=== PATIENT | female | born 1955 | race Caucasian/White ===

== ENCOUNTER → 2017-12-18 | Outpatient (CLI) | payer OTHER | LOC: M.RAD 11:17 | DX: Z12.31 Encounter for screening mammogram for malignant neoplasm of breast (principal); M79.672 Pain in left foot ==

== ENCOUNTER → 2019-08-27 | Outpatient (CLI) | payer OTHER | LOC: M.RAD 14:57 | DX: Z12.31 Encounter for screening mammogram for malignant neoplasm of breast (principal) ==

== ENCOUNTER → 2019-09-04 | Outpatient (CLI) | payer OTHER | LOC: M.ULTRA 08-28 15:42 → M.RAD 10:00 → M.ULTRA 10:30 → M.RAD 10:40 | DX: N64.89 Other specified disorders of breast (principal) ==

== ENCOUNTER → 2020-04-05 | Outpatient (CLI) | payer OTHER | LOC: M.RAD 15:28 | PROVIDERS: ATTEND Family Medicine | DX: N63.21 Unspecified lump in the left breast, upper outer quadrant (principal); R92.8 Other abnormal and inconclusive findings on diagnostic imaging of breast ==

== ENCOUNTER → 2020-04-08 | Outpatient (CLI) | payer OTHER ==
--- NOTE | 2020-04-09 19:07 | PATH ---
[address] [address] PATHOLOGY RPT PROCEDURE Name: CONSTANTINO PEÑA Room: [facility] Waters#: [id number] Admission: 04/08/20 Date of : 57 Discharge: Report #: [id number] Path Case #: [id number] LCA Accession Number: [id number] . 01 Material submitted: . breast - LEFT BREAST 1.55X1.15X0.98CM, 12:30, 3CMFN. Modifiers: left . 01 Clinical history: . MAMMATOME, CANCER . 02 Diagnosis: "Left breast 12:30 3 cm from nipple", needle biopsy: - INVASIVE DUCTAL CARCINOMA, MODERATELY DIFFERENTIATED, GRADE II, INVOLVING MULTIPLE CORES, LONGEST CONTIGUOUS FOCUS MEASURING 0.9 CM ON THE SLIDE (SEE COMMENT). (AGUSTO:mak; 04/09/2020) S 04/09/2020 1522 Local . 02 Comment: Specimen type: Needle biopsy; Tumor site: Left breast 12:30 3 cm FN; Tumor quantitation: Involving multiple cores, longest contiguous focus measuring 0.9 cm on the slide; Histologic type: Invasive ductal carcinoma; Histologic grade: Grade II, moderately differentiated; Tubules, nuclei and mitoses: Tubules score-3, nuclei score-2, mitoses score-2; LVSI: Not identified; Microcalcifications: Not identified; Markers: ER, KS, HER2, and Ki-67; Block: Pending on block A1. . Sybase Developer slides are co-reviewed with Dr. Nathaly San. Clinical and radiographic correlation is required. The case is will be discussed with Dr. Clare Zhu and/or her office and/or the [facility] breast center on 04/13/20. (CLW:mak; 04/09/2020) . 02 Electronically signed: . Ofe Jeronimo MD, Pathologist NPI- [id number] . 01 Gross description: . The specimen is received in formalin, labeled "Constantino Peña, left breast 1230 3 cm from nipple". Received are multiple needle cores of fibrofatty tissue measuring 1.8 x 1.4 x 0.4 cm in aggregate dimensions. The specimen is submitted entirely in cassettes A1 through A3. The cold ischemic time is 3 minutes. The total formalin fixation time is 12 hours and [address] [place] [address] PATHOLOGY RPT PROCEDURE Name: CONSTANTINO PEÑA Room: [facility] Waters#: [id number] Admission: 04/08/20 Date of : 57 Discharge: Report #: [id number] Path Case #: [id number] minutes. (CAA; 04/08/2020) QAC/QAC 04/08/2020 1705 Local . 02 Pathologist provided ICD-10: C50.912 . 02 CPT . 211807 Specimen Comment: A courtesy copy of this report has been sent to [phone] Specimen Comment: [phone] Specimen Comment: Report sent to / Performed at: [address] [facility] [address], [place], [place] [id number] MD Kannan Larry MD Phone: [phone] Performed at: 02 [facility] [address], [place], [place] [id number] MD Mateo Humphries MD Phone: [phone]
== END ==
LOC: M.ULTRA 08:07
PROVIDERS: ATTEND Family Medicine
DX: N63.20 Unspecified lump in the left breast, unspecified quadrant (principal)

== ENCOUNTER → 2020-04-15 | Outpatient (CLI) | payer OTHER | LOC: M.MRI 08:38 | PROVIDERS: ATTEND Family Medicine | DX: S83.241A Other tear of medial meniscus, current injury, right knee, initial encounter (principal); M25.461 Effusion, right knee; X58.XXXA Exposure to other specified factors, initial encounter; Y93.89 Activity, other specified; Y92.89 Other specified places as the place of occurrence of the external cause; Y99.8 Other external cause status ==

== ENCOUNTER → 2020-04-26 | Outpatient (CLI) | payer OTHER ==
[~2020-04-26] MED LIST: BUPROPION XL300 MG PO; OXYCODONE HCL 55 MG PO; SERTRALINE HCL50 MG PO
[2020-04-26 08:40] LABS: CREATININE 1.1 mg/dL (0.6-1.3)
== END ==
LOC: M.LAB 07:30 → M.MRI 08:30
PROVIDERS: ATTEND Surgery
DX: C50.912 Malignant neoplasm of unspecified site of left female breast (principal); N63.21 Unspecified lump in the left breast, upper outer quadrant; R59.0 Localized enlarged lymph nodes

== ENCOUNTER → 2020-05-24 | Outpatient (CLI) | payer OTHER ==
[~2020-05-24] MED LIST changes: -OXYCODONE HCL 55 MG PO
== END ==
LOC: M.ULTRA 08:30
PROVIDERS: ATTEND Surgery
DX: Z01.812 Encounter for preprocedural laboratory examination (principal); Z20.828 Contact with and (suspected) exposure to other viral communicable diseases; N63.21 Unspecified lump in the left breast, upper outer quadrant

== ENCOUNTER → 2020-05-27 | Day surgery (SDC) | payer OTHER ==
[~2020-05-27] MED LIST changes: +OXYCODONE HCL 55 MG PO
[2020-05-27 11:33] LABS: HEMATOCRIT 35.6 % (37.0-47.0); HEMOGLOBIN 11.9 gm/dL (12.0-15.0); MCH 29.3 pg (26.0-34.0); MCHC 33.3 g/dL (28.0-37.0); MCV 87.9 fL (80.0-100.0); MPV 7.5 fl. (7.2-11.1); RBC 4.04 mil/uL (4.20-5.00); RDW-CV 13.7 % (10.5-14.5); WBC 5.4 thou/uL (4.0-11.0)
[2020-05-27 11:37] LABS: CALCIUM 8.7 mg/dL (8.5-10.1); POTASSIUM 4.7 mmol/L (3.5-5.1)
--- NOTE | 2020-05-27 17:12 | EKG ---
[place] [address] ELECTROCARDIOGRAM REPORT Name: CONSTANTINO COHN Room: [facility]#: [id number] Admission: 05/27/20 Attend Phys: Chantel Enciso, Discharge: Date of : 57 Date of Service: 05/27/20 1119 Report #: [id number] THIS REPORT FOR: //name// [facility] Test Date: 2020-05-27 Test Time: 11:19:21 Pat Name: CONSTANTINO COHN Department: Room: Gender: [employer] Assistant Principal: : 1955 Requested By: Chantel Enciso Order Number: [id number] Reading MD: Milton Larry Measurements Intervals Boyd Rate: 62 P: 32 SD: 165 QRS: 125 QRSD: 119 T: 74 QT: 398 QTc: 405 Interpretive Statements Sinus rhythm Nonspecific intraventricular conduction delay No previous ECG available for comparison Electronically Signed On 05-27-2020 17:12:38 CDT by Milton Larry [email or web address] <ELECTRONICALLY SIGNED> By: Sharifa Larry MD, [facility] 05/27/20 171 1119 1119 Sharifa Larry MD, FACC /EPI
--- NOTE | 2020-05-28 05:45 | OP ---
[address] [address] OPERATIVE REPORT Name: CONSTANTINO COHN Room: [facility]#: [id number] Admission: 05/27/20 Attend Phys: Chantel Enciso DO Discharge: Date of : 57 Report #: [id number] THIS REPORT FOR: //name// cc: Clare Zhu Linda J. DO ~ CC: Chantel Zhu DATE OF SERVICE: 05/27/2020 PREOPERATIVE DIAGNOSIS: Left breast cancer. POSTOPERATIVE DIAGNOSIS: Left breast cancer. FINDINGS: RFID tag in the left breast. Previous upper outer left breast incision, superficial left sentinel lymph node. Uptake at the nipple with Neoprobe was approximately 8300, uptake on the left superficial sentinel lymph node was 51. SURGEON: Chantel Enciso DO COSURGEON: Magdiel Lee, PGY-1. BURNISHER: MS [email or web address]. OPERATION PERFORMED: Left breast RFID tag-guided lumpectomy, left superficial sentinel lymph node dissection. ANESTHESIA: LMA and local. ESTIMATED BLOOD LOSS: 30 mL. DRAINS: None. SPECIMENS: Left breast lumpectomy and left superficial sentinel lymph node. COMPLICATIONS: None. CONDITION: Stable. DISPOSITION: PACU to home. HISTORY OF PRESENT ILLNESS: The patient is a very pleasant 64-year-old female who presented to my office with a change in her mammogram. She underwent an ultrasound-guided biopsy, which was positive for left breast invasive ductal carcinoma. 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 [address] OPERATIVE REPORT Name: CONSTANTINO COHN Alejandra Room: [facility]#: [id number] Admission: 05/27/20 Attend Phys: Chantel Enciso DO Discharge: Date of : 57 Report #: [id number] already undergone lumpectomy and radiation. She was seen in consultation with Oncology and Radiation Oncology and it was decided that we could move forward with repeat lumpectomy, sentinel lymph node dissection and radiation. Risks and benefits of surgery were discussed clearly with the patient and she agreed to proceed. Of note, we were not sure whether or not we would be able to complete a sentinel lymph node dissection as her previous lumpectomy is in the left upper outer quadrant of the breast. We discussed that we would attempt it today, but everyone was aware that it may not be successful. DESCRIPTION OF PROCEDURE: The patient presented to preop and was then taken to Radiology where she underwent a left breast, nuclear medicine injection. She then returned to preop where she underwent informed consent. She had received an RFID tag placement several days prior to surgery. She was then taken to the operating room where she was laid supine on the operating room table. SCDs were placed on bilateral lower extremities. Ancef was given in the perioperative period. General LMA anesthesia was induced by Anesthesia without difficulty. A 7 mL of Lymphazurin were then injected in the periareolar area without issue. Left breast was then prepped and draped in standard sterile fashion. We proceeded first with our sentinel lymph node dissection. Neoprobe was brought onto the field and the area of the nipple was investigated. Highest uptake in the area of the nipple was approximately 8300. Neoprobe was moved into the axilla and the area of the highest uptake was marked. A 10 mL of 0.5% Marcaine were injected just below the hair-bearing area. Incision was made with #15 blade. Cautery was used for hemostasis. A Weitlaner retractor was placed within the wound. Then, using very careful blunt and cautery dissection, we dissected down through the subcutaneous tissues until the clavipectoral fascia was identified. Clavipectoral fascia was transected utilizing cautery and the axillary fat pad was then easily identified. Neoprobe was returned into the axilla and an area of uptake was identified. This area was dissected down gently too with a Jenna dissection. At this point, a blue lymphatic was identified tracing to a lymph node. This area was gently elevated using an Allis clamp and the entirety of the lymph node was excised using cautery. Our Neoprobe uptake was not as high as usual, but again I suspect this was secondary to the patient's history of a lumpectomy and radiation in the same area. The highest amount of uptake was 51. This was handed off as our left superficial sentinel lymph node. Neoprobe was returned into the axilla and there was no further uptake at all noted. Neoprobe was then handed off. Hemostasis was assured within this cavity. We then turned our attention to the left breast. Hologic RFID probe was then brought onto the field and the area of the clip was identified and was marked. This was essentially in the exact same area as her previous lumpectomy. The previous lumpectomy incision was then marked out. A 10 mL of 0.5% Marcaine were injected. The previous lumpectomy incision was reopened using a #15 blade. Cautery was used for hemostasis. Then, using the RFID tag for guidance, a lumpectomy specimen was formed utilizing cautery. The probe was utilized at the conclusion of the lumpectomy to verify that the tag was in the middle of the lumpectomy specimen, it did [place] [address] OPERATIVE REPORT Name: CONSTANTINO COHN Alejandra Room: [facility]#: [id number] Admission: 05/27/20 Attend Phys: Chantel Enciso DO Discharge: Date of : 57 Report #: [id number] margins. Specimen was marked in the superior and lateral directions. It was then taken to Radiology. Radiologist did call to update us that it did appear that we had an adequate specimen. Both cavities were copiously irrigated and hemostasis was assured. FloSeal was introduced into both cavities. Both cavities were then closed in a layered fashion using deep and superficial stitches of 3-0 Vicryl in inverted interrupted fashion. Skin wounds were closed with running 4-0 Monocryl. A total of 30 mL of 0.5% Marcaine were used to anesthetize the wounds. Wounds were then cleansed and covered with Dermabond. The patient was then allowed to awake from anesthesia, was extubated and transported to the recovery room with no further difficulties. Counts were correct x 2 at the conclusion of the case. <ELECTRONICALLY SIGNED> By: Chantel Enciso DO 05/28/20 0545 1413 1626Ckimberly Enciso DO /nt
--- NOTE | 2020-06-01 17:06 | PATH ---
[address] [address] PATHOLOGY RPT PROCEDURE Name: SUKICONSTANTINO Alejandra Room: [facility]#: [id number] Admission: 05/27/20 Date of : 57 Discharge: Report #: [id number] Path Case #: [id number] LCA Accession Number: [id number] . 01 Material submitted: . PART A: lymph node - LEFT SENTINEL LYMPH NODE. Modifiers: left PART B: breast - LEFT BREAST LUMPECTOMY SPECIMEN TO MAMMOGRAPHY. Modifiers: left . 01 Clinical history: . Short-sup.; long-lateral on the stitches . 02 Diagnosis: A. Left sentinel lymph node: - One benign lymph node (0/1). See comment. . B. Left breast lumpectomy: - INFILTRATING DUCTAL ADENOCARCINOMA, HIGH-GRADE, SPANNING 19 MM, IN ASSOCIATION WITH CHANGES OF PRIOR BIOPSY (INCLUDING CYLINDRICAL MARKER), WITH ALL SURGICAL MARGINS FREE OF INVOLVEMENT AND CLOSEST (POSTERIOR NEAR INFERIOR) 0.8 MM AWAY. - DUCTAL CARCINOMA IN SITU (DCIS), NUCLEAR GRADE I, CRIBRIFORM AND SOLID TYPES, SPANNING AT LEAST 19 MM, IN ASSOCIATION WITH CHANGES OF PRIOR BIOPSY, WITH ALL SURGICAL MARGINS FREE OF INVOLVEMENT AND CLOSEST (POSTERIOR) LOCATED 4 MM AWAY. SEE COMMENT. . 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 . Surgical Pathology Cancer Case Summary INVASIVE CARCINOMA OF THE BREAST: Resection . Procedure ___ Excision (less than total mastectomy) . Specimen Laterality ___ Left . + Tumor Site + ___ Clock position: 12:30, 3 cm from nipple (see comment) . Tumor Size ___ Greatest dimension of largest invasive focus >1 mm: 19 mm . Histologic Type ___ Invasive carcinoma of no special type (ductal) . Histologic Grade (Aurelio Histologic Score) Glandular (Acinar)/[place] [address] PATHOLOGY RPT PROCEDURE Name: CONSTANTINO PEÑA Alejandra Room: [facility].#: [id number] Admission: 05/27/20 Date of : 57 Discharge: Report #: [id number] Path Case #: [id number] ___ Score 3 (<10% of tumor area forming glandular/tubular structures) . Nuclear Pleomorphism ___ Score 2 (cells larger than normal with open vesicular nuclei, visible nucleoli, and moderate variability in both size and shape) . Mitotic Rate ___ Score 3 . Overall Grade ___ Grade 3 (scores of 8 or 9) . + Tumor Focality + ___ Single focus of invasive carcinoma . Ductal Carcinoma In Situ (DCIS) ___ Present + ___ Negative for extensive intraductal component (EIC) . + Size (Extent) of DCIS + Estimated size of DCIS is at least 19 mm . + Architectural Patterns + ___ Cribriform + ___ Solid . + Nuclear Grade + ___ Grade I (low) . + Necrosis + ___ Not identified . + Lobular Carcinoma In Situ (LCIS) + ___ Not identified . Tumor Extension Skin ___ Skin is not present . Skeletal Muscle ___ No skeletal muscle is present . Margins Invasive Carcinoma Margins ___ Uninvolved by invasive carcinoma Distance from closest margin: ___ Specify 0.8 mm + Specify closest margin: Posterior near inferior + Distance from other margin: Superior 0.9 [place] [address] PATHOLOGY RPT PROCEDURE Name: CONSTANTINO PEÑA Room: [facility]#: [id number] Admission: 05/27/20 Date of : 57 Discharge: Report #: [id number] Path Case #: [id number] . DCIS Margins ___ Uninvolved by DCIS Distance from closest margin: ___ Specify 4 mm . Specify closest margin: Posterior . Regional Lymph Nodes ___ Uninvolved by tumor cells Total Number of Lymph Nodes Examined: 1 Number of [place] Nodes Examined: 1 . Treatment Effect in the Breast ___ No known presurgical therapy . + Lymphovascular Invasion + ___ Not identified . + Dermal Lymphovascular Invasion + ___ No skin present . . PATHOLOGIC STAGE CLASSIFICATION (PTNM, AJCC 8TH EDITION) Primary Tumor (pT) ___ pT1c:Tumor >10 mm but less than or equal to 20 mm in greatest dimension . Regional Lymph Nodes Modifier ___ (sn):[place] node evaluated. . Regional Lymph Nodes (pN) ___ pN0:No regional lymph node metastasis identified . + Ancillary Studies + ___ Breast Biomarker Testing Performed on Previous Biopsy + Testing Performed on A1 . + Estrogen Receptor (ER) + ___ Positive 98% . + Progesterone Receptor (PgR) + ___ Positive 95% . + HER2 (by immunohistochemistry) + ___ Not over-expressed 1+ . + ___ Ki-67 percentage of positive nuclei: 50% [place] [address] PATHOLOGY RPT PROCEDURE Name: COSNTANTINO PEÑA Room: [facility]#: [id number] Admission: 05/27/20 Date of : 57 Discharge: Report #: [id number] Path Case #: [id number] + Microcalcifications + ___ Present in non-neoplastic tissue + ___ Other: Medial calcification of blood vessels . (TEO:obinna; 06/01/2020) R 06/01/2020 1307 Local . 02 Comment: Properly controlled keratin AE1/AE3 immunohistochemical stains performed on A1, A2, and A3 show no evidence of metastatic tumor. The invasive tumor most closely approaches the posterior margin near inferior in B16 and also approaches to 0.9 mm away from the superior margin in B17. The site of the invasive tumor in the lumpectomy specimen provided in the synoptic data is taken from the prior left breast 12:30, 3 cm from nipple needle biopsy information ([phone]). (TEO:obinna; 06/01/2020) . 02 Electronically signed: . Mateo Humphries MD, Pathologist NPI- [id number] . 01 Gross description: . A. The specimen is received in formalin, labeled "Constantino Peña, left sentinel lymph node" and consists of a segment of yellow lobulated tissue measuring 2.6 x 2.3 x 0.8 cm. Present within is a lymph node measuring 1.5 x 1.2 cm showing fat replaced cut surfaces. The specimen is entirely submitted in A1-A3. . B. The specimen is received in formalin, labeled "Constantino Peña, left breast lumpectomy" and consists of an oriented 18 g lumpectomy specimen with a long stitch lateral and short superior. It measures 4.4 cm L-M, 3.9 cm S-I, 1.6 cm L-M, and is inked as follows: superior-blue, inferior-green, medial-red, lateral-yellow, anterior-orange, and posterior-black. It is sectioned from medial to lateral into 12 slices revealing a circumscribed white-schroeder mass in slices 6-11 measuring 1.9 x 1.5 cm that approaches to margins as follows: 0.2 cm from anterior, 0.5 cm from posterior, 0.8 cm from superior, 0.9 cm from inferior, 0.3 cm from lateral, and greater than 1 cm from medial. Within the mass are previous biopsy changes with a previous biopsy cavity and a cylindrical marker. No additional masses are identified. The specimen is entirely submitted as follows: . B1: Slice 1 medial, perpendicular B2: Slice 2 B3: Slice 3 B4-B5: Slice 4 B6-B7: Slice 5 B8-B9: Slice [address] [place] [address] PATHOLOGY RPT PROCEDURE Name: CONSTANTINO PEÑA Room: [facility].#: [id number] Admission: 05/27/20 Date of : 57 Discharge: Report #: [id number] Path Case #: [id number] B10-B11: Slice 7 B12-B13: Slice 8 B14-B15: Slice 9 B16-B17: Slice 10 B18-B19: Slice 11 B20: Slice 12 lateral, perpendicular . The specimen was collected on 05/27/2020 at 1330 with no time in formalin. The time out of formalin is 9:50 PM on 05/28/2020. (SDY; 05/28/2020) SYU/SYU 06/01/2020 1243 Local . 02 Pathologist provided ICD-10: C50.912, D05.12 . 02 CPT . 476965, 273543, V21146 Specimen Comment: A courtesy copy of this report has been sent to [phone] Specimen Comment: [phone] Specimen Comment: Report sent to / DR PABLO Performed at: 01 [facility] [address], [place], [place] [id number] MD Kannan Larry MD Phone: [phone] Performed at: 02 [address] [place] [id number] MD Mateo Humphries MD Phone: [phone]
== END | disposition home or self-care (01) ==
LOC: M.SUR 05:23
PROVIDERS: ATTEND Surgery
DX: C50.912 Malignant neoplasm of unspecified site of left female breast (principal); Z79.899 Other long term (current) drug therapy; Z88.0 Allergy status to penicillin

== ENCOUNTER → 2020-06-10 | Outpatient (CLI) | payer OTHER | LOC: M.CT 08:56 | PROVIDERS: ATTEND Family Medicine | DX: K80.20 Calculus of gallbladder without cholecystitis without obstruction (principal); R31.0 Gross hematuria ==

== ENCOUNTER → 2020-12-27 | Outpatient (CLI) | payer OTHER | LOC: M.RAD 09:28 | PROVIDERS: ATTEND Surgery | DX: C50.912 Malignant neoplasm of unspecified site of left female breast (principal); Z98.890 Other specified postprocedural states; R92.8 Other abnormal and inconclusive findings on diagnostic imaging of breast ==

== ENCOUNTER → 2021-04-27 | Outpatient (CLI) | payer OTHER | LOC: M.RAD 10:51 | PROVIDERS: ATTEND Surgery | DX: C50.412 Malignant neoplasm of upper-outer quadrant of left female breast (principal); Z98.890 Other specified postprocedural states; Z17.0 Estrogen receptor positive status [ER+] ==